=== PATIENT | male | born 1965 ===

== ENCOUNTER → 2020-04-23 | Outpatient (CLI) | payer BC ==
--- NOTE | 2020-04-23 13:46 | RAD ---
Ultrasound-guided left thyroid lobe fine-needle aspiration biopsy. COMPARISON: Thyroid ultrasound and report of 02/01/2020. PROCEDURE: Informed consent was obtained and an appropriate procedural pause observed. Using standard sterile technique, ultrasound guidance and local anesthesia, 4 passes through the dominant 6 x 1 cm mid to inferior nodule in the left thyroid lobe targeting the areas of intraparenchymal calcifications were made with 25-gauge needles, confirming tissue specimen adequacy with inspection by the ocular care technologist present during the procedure. The puncture site was dressed and postprocedure instructions were reviewed prior to patient discharge. There were no apparent complications. IMPRESSION: Successful left thyroid lobe nodule fine-needle aspiration biopsy. Pathology results pending. Electronically signed by: Avtar Weeks MD (04/23/2020 1:43 PM) [id number]
--- NOTE | 2020-04-25 12:07 | PATHOLOGY ---
Note [facility] Accession Number: [id number] TESTS RESULT FLAG UNITS REF RANGE LAB Clinician Provided Cytology Information No. of containers..01 Other (Miscellaneous) Source: LEFT THYROID NODULE DIAGNOSIS: LEFT THYROID NODULE NEGATIVE FOR MALIGNANT CELLS. [place] CATEGORY II. SPECIMEN CONSISTS OF BENIGN FOLLICULAR CELLS, HEMOSIDERIN-LADEN MACROPHAGES, COLLOID, AND BLOOD. 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 THIS INTERPRETATION INCLUDES EVALUATION OF A CELL BLOCK. Pathologist ICD10: 02 E04.1 Signed out by: 02 Ralf Edwards MD, Pathologist NPI- [id number] Performed by: Carlos Meyers, [employer] ([facility]) Gross description: 01 30ML, CLEAR RED, 2F 2AD 2HE /LCS 04/23/2020 1729 Local FLAG LEGEND: L-Low Normal,H-High Normal,LL-Alert Low,HH-Alert High <-Panic Low,>-Panic High,A-Abnormal,AA-Critical Abnormal Performed at: [facility] [address] [place] [address] Arnaldo Sarkar MD, 02 [facility] [address] [place] [address] Ralf Edwards MD, Specimen Comment: A courtesy copy of this report has been sent to [phone], [phone] Specimen Comment: [id number] Specimen Comment: Report sent to / DR CONTRERAS Performed at: [address], [place], [place] [id number] MD Arnaldo Sarkar MD Phone: [phone]
== END | disposition home or self-care (01) ==
LOC: US 09:09
PROVIDERS: ATTEND Family Medicine
DX: E04.2 Nontoxic multinodular goiter (principal)
CPT/HCPCS: 76942; 88173; 88305